=== PATIENT | male | born 1960 | race African-American/Black ===

== ENCOUNTER → 2016-09-07 | Outpatient (CLI) | payer OTHER ==
--- NOTE | ~2016-09-07 | CT57 ---
[facility] A Service of [facility] RADIOLOGY TEXT RESULTS PATIENT: CARTER MYERS LOCATION: [facility] : 56 UNIT #: [id number] AGE: [address]: ATIF CORNEJO SEX: M ORDER DR: [id number] [facility] [address] [place], [place] [address] [id number] O MR#: [id number] #: [id number] NAME: CARTER MYERS : 1960 SEX: M STUDY DATE/TIME: 09/07/2016 13:53 UNIT: [facility] ROOM: STUDY DESCRIPTION: CT Chest Wo Cont Attending Physician: Atif Cornejo Aprn Ordering Physician: Atif Cornejo Aprn Primary Care Physician: No Primary Care Physician MEDICAL IMAGING REPORT This report is preliminary unless electronic signature is present EXAM CT scan of the chest without contrast, 09/07/16. HISTORY Diffuse chest pain for 1-1/2 weeks. No known injury with shortness of breath since 08/30/2016. TECHNIQUE Spiral CT was performed through the chest without intravenous contrast administration as per clinician request. All CT scans at this facility use dose modulation, iterative reconstruction, and/or weight-based dosing when appropriate to reduce radiation dose to as low as reasonably achievable. FINDINGS The lungs are clear bilaterally and demonstrate no pulmonary mass or acute infiltrate. There is no significant thoracic adenopathy. There are no pleural effusions. The lungs are clear. Images of the upper abdomen are normal. IMPRESSION Negative noncontrast CT of the chest. Dictated by... Melchor Jensen M.D. THIS IS AN ELECTRONICALLY VERIFIED REPORT Melchor Jensen M.D. at 09/08/2016 2:18 PM ROSETTA/coreen TD: 09/07/2016 15:46 [facility] A Service of [facility] RADIOLOGY TEXT RESULTS PATIENT: CARTER MYERS LOCATION: [facility] : 56 UNIT #: [id number] AGE: [address]: ATIF CORNEJO SEX: M ORDER DR: JOB #: [id number] MEDICAL IMAGING REPORT Page 1 of 1 COPY
== END | disposition home or self-care (01) ==
LOC: CRAD 13:31
DX: R07.1 Chest pain on breathing (principal)
CPT/HCPCS: 71250